=== PATIENT | female | born 1930 | race Caucasian/White ===

== ENCOUNTER → 2018-08-05 | Outpatient (CLI) | payer MEDICARE, OTHER ==
[2018-08-05 11:33] LABS: FREE T4 0.99 ng/dL (0.76-1.46)
== END | disposition home or self-care (01) ==
LOC: LB 10:03
DX: E23.7 Disorder of pituitary gland, unspecified (principal)
CPT/HCPCS: 84305; 84439

== ENCOUNTER 2018-08-15 12:03 | Emergency (ER) | payer MEDICARE, OTHER ==
[~2018-08-15] VITALS: Ht 218.4 cm; Wt 66.2 kg
[2018-08-15 12:08] VITALS: Ht 218.4 cm; Wt 66.2 kg
[2018-08-15 12:52] LABS: BASOPHIL % 0.4 % (0-2); PLATELET COUNT 266 x10^3mcL (130-400); RED CELL DISTRIBUTION WIDTH 13.1 % (11.5-14.5)
[2018-08-15 12:53] LABS: CALCIUM 9.2 mg/dL (8.5-10.1); CARBON DIOXIDE 26.2 mmol/L (21-32); CHLORIDE SERUM 105 mmol/L (98-107); GLUCOSE SERUM 134 mg/dL (74-106); POTASSIUM SERUM 4.3 mmol/L (3.5-5.1); SODIUM SERUM 141 mmol/L (136-145)
[2018-08-15 13:02] LABS: microscopic required? NO
[2018-08-15 13:03] LABS: ALBUMIN 3.4 g/dL (3.4-5.0); ALKALINE PHOSPHATASE 63 U/L (46-116); ALT/SGPT 24 U/L (14-59); AST/SGOT 23 U/L (15-37); BILIRUBIN TOTAL 0.4 mg/dL (0.20-1.00); C REACTIVE PROTEIN 0.7 mg/dL (<=0.9); TOTAL PROTEIN, SERUM 7.2 g/dL (6.4-8.2)
[2018-08-15 13:07] LABS: UA SPECIFIC GRAVITY <=1.005 (1.005-1.035); urine erythrocyte NEGATIVE (NEGATIVE)
[2018-08-15 13:09] LABS: CK-MB < 0.5 ng/mL (0-3.6); CREATINE KINASE 61 U/L (26-192)
[2018-08-15 13:10] LABS: T3 TOTAL 0.99 ng/mL
[2018-08-15 13:37] LABS: FREE T4 0.9 ng/dL (0.76-1.46); FREE THYROXINE INDEX 2.3 ug/dL (1.4-4.5); T4(THYROXINE) 7.3 ug/dL (4.7-13.3)
[2018-08-15 14:06] LABS: ERYTHROCYTE SED RATE 48 mm/hr (0-30)
[2018-08-15 14:41] VITALS: BP 99/68
== END 2018-08-15 14:41 | disposition home or self-care (01) ==
LOC: ED 12:03
PROVIDERS: Specialist
DX: R06.02 Shortness of breath (principal); I10 Essential (primary) hypertension; I48.91 Unspecified atrial fibrillation
CPT/HCPCS: 36415; 36600; 83880; 84439; Q0092

== ENCOUNTER → 2018-08-20 | Outpatient (CLI) | payer MEDICARE, OTHER | END | disposition home or self-care (01) | LOC: RD 15:09 | DX: R06.02 Shortness of breath (principal) ==